=== PATIENT | female | born 1970 | race Caucasian/White ===

== ENCOUNTER 2017-02-09 17:08 | Emergency (ER) | payer MEDICAID, OTHER ==
[~2017-02-09] VITALS: Wt 90.9 kg
[~2017-02-09 17:08] MED LIST: PREN1TAB49 PO; [UNRECOGNIZED DRUG - CODE]
--- NOTE | 2017-02-09 20:20 | RADRPT ---
PROCEDURE: CT abdomen and pelvis without contrast. CLINICAL INDICATION: Abdominal Pain TECHNIQUE: CT scan of the abdomen and pelvis without contrast was performed and is reconstructed a t 2.5 mm contiguous axial intervals from the dome of the diaphragm to the inferior pubic rami.. The patient was scanned without intravenous contrast. Sagittal and coronal reformatted images were obt ained from the axial source images. The calculated radiation dose measures 1351 mGy centimeters. The CTDI measures 22 mGy. Individualized dose optimization technique was used for the performance of this exam. This included 1. Automated exposure control. 2. Adjustment of the mA and / or kV according to the patient's size. 3. Use of iterative reconstructed technique. COMPARISON: To FINDINGS: The lung bases are clear of any infiltrate or nodule. No effusion is seen. The liver is of normal size, contour and attenuation with no solid mass or ductal dilatation. There are multiple hepatic cysts, the largest of which is in the left lobe of the liver measuring 16 mm in diameter. The gallbladder has been removed. No choledocholithiasis is seen. No splenic, adrenal or pancreatic abnormalities present. Kidneys are of normal size and contour. No hydronephrosis or masses seen. There is 2 mm nonobstruc ting stone in the lower pole of the left kidney. Ureters are of normal course and caliber with no st one. No bladder mass or stone is present. Uterus is normal. No adnexal mass is visualized. There is no aneurysm. No adenopathy is present. No bowel mass or obstruction is present. The appendix is normal. No phlegmon, ascites or pneumop eritoneum is visualized. There is a paraumbilical hernia containing fat. The osseous structures are intact. IMPRESSION: No evidence of obstructive uropathy, diverticulitis or appendicitis. 2 mm left renal calculus. Post cholecystectomy. Hepatic cysts. Paraumbilical hernia containing fat. .Hernando Montana MD, Date Time Electronically viewed and signed by .Hernando Montana MD, on 02/09/2017 20:20 .A/
[2017-02-09] MEDS ORDERED: IBUP-1542 PO (20:26)
[2017-02-09 20:40] VITALS: BP 130/75; PULSE 89; RESP 18; TEMP 98.5
--- NOTE | 2017-02-09 20:55 | ERD ---
ER Documentation Chief Complaint Chief Complaint ABD PAIN, NAUSEA, DIARRHEA HPI 46 year old female with history of anemia SP cholecystectomy presents to the emergency complaining of moderate abdominal pain for one month and nausea and diarrhea for three days. Patient states that she has been seen by her primary care physician already for her abdominal pain and a CT scan was in process. Denies fevers or vomiting. Patient presents today since the nausea, diarrhea is new for past three days. Patient states she takes iron. ROS All systems reviewed and are negative except as per history of present illness. Medications Home Meds Active Scripts Ibuprofen* (Motrin*) 600 Mg Tab, 600 MG PO Q6H Y for PAIN, #30 TAB Prov:CAROL BURGER PA-C 02/09/17 Reported Medications Ibuprofen/Diet. Supp 11 (Theraprofen-90 Co-Pack) 600 Mg/Comb.pkg Combo..pkg 10/01/11 Vits W-Ca,Fe,Fa(<1MG) () 1 Tab Tablet, 1 TAB PO DAILY 12/06/10 Allergies Allergies: Coded Allergies: Penicillins (Verified Allergy, Severe, ITCHING, 07/29/11) PMhx/Soc History of Surgery: Yes () Anesthesia Reaction: No Hx Neurological Disorder: No Hx Respiratory Disorders: No Hx Cardiac Disorders: No Hx Psychiatric Problems: No Hx Miscellaneous Medical Probl: Yes (ANEMIA) Hx Alcohol Use: No Hx Substance Use: No Hx Tobacco Use: No Smoking Status: Never smoker Physical Exam Vitals Vital Signs Date Time Temp Pulse Resp B/P Pulse Ox O2 Delivery O2 Flow Rate FiO2 02/09/17 17:11 97.7 80 20 144/72 97 Physical Exam Const: WDWN Head: Atraumatic Eyes: Normal Conjunctiva ENT: Normal External Ears, Nose and Mouth. Neck: Full range of motion..~ No meningismus. Resp: Clear to auscultation bilaterally Cardio: Regular rate and rhythm, no murmurs Abd: Soft, non distended. Normal bowel sounds TTP in all quadrants Skin: No petechiae or rashes Back: No midline or flank tenderness Ext: No cyanosis, or edema Neur: Awake and alert Psych: Normal Mood and Affect Result Diagram: 02/09/17181902/09/171819 Results 24 hrs Laboratory Tests Test 11/8/17 18:20 White Blood Count 9.310^3/ul Red Blood Count 4.6010^6/ul Hemoglobin 9.8g/dl Hematocrit 34.5% Mean Corpuscular Volume 75.0fl Mean Corpuscular Hemoglobin 21.3pg Mean Corpuscular Hemoglobin Concent 28.4g/dl Red Cell Distribution Width 17.6% Platelet Count 93342^3/UL Mean Platelet Volume 9.8fl Neutrophils % 68.4% Lymphocytes % 20.3% Monocytes % 7.5% Eosinophils % 2.8% Basophils % 0.5% Nucleated Red Blood Cells % 0.0/100WBC Neutrophils # 6.410^3/ul Lymphocytes # 1.910^3/ul Monocytes # 0.710^3/ul Eosinophils # 0.310^3/ul Basophils # 0.110^3/ul Nucleated Red Blood Cells # 0.010^3/ul Urine Color YELLOW Urine Clarity SLIGHTLY CLOUDY Urine pH 6.0 Urine Specific [place] 1.011 Urine Ketones NEGATIVEmg/dL Urine Nitrite NEGATIVEmg/dL Urine Bilirubin NEGATIVEmg/dL Urine Urobilinogen NEGATIVEmg/dL Urine Leukocyte Esterase NEGATIVELeu/ul Urine Microscopic RBC 2/HPF Urine Microscopic WBC 1/HPF Urine Bacteria FEW/HPF Urine Hemoglobin NEGATIVEmg/dL Urine Glucose NEGATIVEmg/dL Urine Total Protein NEGATIVEmg/dl Sodium Level 140mmol/L Potassium Level 4.1mmol/L Chloride Level 103mmol/L Carbon Dioxide Level 26mmol/L Anion Gap 15 Blood Urea Nitrogen 13mg/dl Creatinine 0.54mg/dl Glucose Level 95mg/dl Calcium Level 9.0mg/dl Total Bilirubin 0.2mg/dl Direct Bilirubin 0.00mg/dl Indirect Bilirubin 0.2mg/dl Aspartate Amino Transf (AST/SGOT) 28IU/L Alanine Aminotransferase (ALT/SGPT) 30IU/L Alkaline Phosphatase 142IU/L Total Protein 7.3g/dl Albumin 4.0g/dl Globulin 3.30g/dl Albumin/Globulin Ratio 1.21 Lipase 56U/L Procedures/MDM This is a 46-year-old female presenting to emergency department complaining of abdominal pain for the past month. Patient states that she has had a few episodes of diarrhea in the past 3 days. There was no evidence of acute abdomen on examination. No evidence of appendicitis, diverticulitis, obstruction. No evidence of incarcerated or related hernia. Patient had a hemoglobin of 9, patient has a history of anemia and is taking iron and will follow up with her primary care physician regarding this. Lab work was drawn. CBC did not show any evidence of leukocytosis CMP did not show any evidence of renal, liver, or electrolyte abnormalities. Lipase was normal. UA did not show any evidence of hemoglobin or urinary tract infection. CT scan of the abdomen was done and radiologist stated: No evidence of obstructive uropathy, diverticulitis or appendicitis. 2 mm left renal calculus. Post cholecystectomy. Hepatic cysts. Paraumbilical hernia containing fat. I have discussed the patient to follow-up with her primary care physician, patient understands and agrees with this plan Departure Diagnosis: Primary Impression: Abdominal pain Additional Impressions: Periumbilical hernia Hepatic cyst Condition: Stable Patient Instructions: Abdominal Pain, Abdominal Pain, Unknown Cause, (Female), Hernia (Inguinal, Ventral, Umbilical) Additional Instructions: Visite a [facility] [place] santizo para un EXAMEN.Regrese a estas instalaciones si no se mejora fred esperbamos o fred le dijimos. [place] toda la medicina alex y fred se le indic. Regrese a estas instalaciones si no se mejora fred esperbamos o fred le dijimos. CAROL BURGER PA-C Feb 09, 2017 20:47
== END 2017-02-09 20:40 | disposition home or self-care (01) ==
LOC: FTE 17:08
DX: K42.9 Umbilical hernia without obstruction or gangrene (principal); K76.89 Other specified diseases of liver
CPT/HCPCS: 74176; 80053; 81001; 83690; 85025; Z7502; 81003

== ENCOUNTER 2018-12-08 06:13 | Day surgery (SDC) | payer OTHER ==
[~2018-12-08] VITALS: Ht 162.6 cm; Wt 105.9 kg
[2018-12-08] VITALS (17 sets, daily range): BP systolic 110–142; BP diastolic 63–78; PULSE 58–89; RESP 17–29; Ht 162.6 cm; Wt 105.9 kg
[~2018-12-08 06:13] MED LIST changes: +IBUP-1542 PO
[2018-12-08] MEDS ORDERED: MIDAZOLAM 1 MG/ML 2 ML INJ ONE (08:11)
[2018-12-08] MEDS ORDERED: BUPIVACAINE 0.25% (MPF) 30 ML INJ ONE (08:23)
[2018-12-08] MEDS ORDERED: POLYMYXIN/BACITRACIN 1L IRRIG IRR ONE (08:47)
[2018-12-08] MEDS ORDERED: ROCURONIUM 50 MG INJ ONE (08:53)
[2018-12-08] MEDS ORDERED: NEOSTIGMINE 3 MG/3 ML SYRINGE ONE (08:53)
[2018-12-08] MEDS ORDERED: LIDOCAINE 2% (SDV) 5 ML INJ ONE (08:53)
[2018-12-08] MEDS ORDERED: PROPOFOL 20 ML ONE (08:53)
[2018-12-08] MEDS ORDERED: GLYCOPYRROLATE 0.4 MG INJ ONE (08:53)
[2018-12-08] MEDS ORDERED: ONDANSETRON 4 MG INJ ONE (08:55)
[2018-12-08] MEDS ORDERED: CEFAZOLIN 1 GM INJ ONE (09:02)
[2018-12-08] MEDS ORDERED: DIPHENHYDRAMINE 50 MG INJ IV PRN (09:30)
[2018-12-08] MEDS ORDERED: HYDROmorphONE 1 MG/5 ML IV SYRINGE IV PRN ×2 (09:30)
[2018-12-08] MEDS ORDERED: FENTAnyl 50 MCG/ML VIAL IV PRN (09:30)
[2018-12-08] MEDS ORDERED: HYDROCODONE/APAP (5/325) TAB PO ONE (09:30)
[2018-12-08] MEDS ORDERED: ONDANSETRON 4 MG INJ IV PRN (09:30)
[2018-12-08] MEDS ORDERED: METOCLOPRAMIDE 10 MG INJ IV PRN (09:30)
[2018-12-08] MEDS ORDERED: MEPERIDINE 25 MG INJ IV PRN (09:30)
[2018-12-08] MEDS ORDERED: OXYCODONE/ACETAMINOPHEN (10/325) TAB PO ONE (12:00)
[2018-12-08] MEDS ORDERED: SOD CHLORIDE 0.9% 1,000 ML IV SCH (13:00)
[2018-12-08] MEDS ORDERED: CLINDAMYCIN 600 MG/D5W (PMX) 50 ML IVPB ONE (13:00)
[2018-12-08] MEDS ORDERED: OXYCODONE/ACETAMINOPHEN (10/325) TAB PO PRN (13:30)
== END 2018-12-08 13:20 | disposition home or self-care (01) ==
LOC: SDS 06:13
PROVIDERS: ATTEND Surgery
DX: K43.0 Incisional hernia with obstruction, without gangrene (principal); K43.6 Other and unspecified ventral hernia with obstruction, without gangrene
CPT/HCPCS: 49655; J0690; J1170; J2250; J2405; J2710; J3010; S0077; Z7610